=== PATIENT | female | born 1955 | race Caucasian/White ===

== ENCOUNTER → 2018-06-27 | Outpatient (CLI) | payer OTHER ==
[~2018-06-27] MED LIST: AMITRIPTYLINE H75 M2 PO; CELEXA40 MG PO; HYDROCODON-ACE1 EAC5 PO; HYDROCODONE-AP1 EAC6 PO; LIPITOR10 MG PO; LISINOPRIL5 MG PO; MELOXICAM7.5 MG; METFORMIN HCL500 MG PO; PHENERGAN 25 MG25 M1 PO; PREVACID30 MG PO; ZOFRAN ODT4 MG PO
[2018-06-27 10:55] LABS: POTASSIUM 5.1 mmol/L (3.5-5.1)
== END ==
LOC: M.LAB 02:15
PROVIDERS: Student in an Organized Health Care Education/Training Program
DX: Z01.812 Encounter for preprocedural laboratory examination (principal); E11.9 Type 2 diabetes mellitus without complications

== ENCOUNTER → 2019-06-12 | Outpatient (CLI) | payer OTHER | LOC: M.CT 10:53 → M.ULTRA 10:53 | DX: M17.11 Unilateral primary osteoarthritis, right knee (principal); M25.461 Effusion, right knee; M25.761 Osteophyte, right knee; M79.604 Pain in right leg ==

== ENCOUNTER → 2020-03-10 | Outpatient (CLI) | payer OTHER | LOC: M.ULTRA 10:59 | DX: N64.89 Other specified disorders of breast (principal) ==